=== PATIENT | female | born 1970 | race Caucasian/White ===

== ENCOUNTER 2017-06-27 20:23 | Emergency (ER) | payer OTHER ==
[~2017-06-27] VITALS: Ht 162.6 cm; Wt 111.0 kg
[~2017-06-27 20:23] MED LIST: NORCO 5/3251 TABLET PO; ZOFRAN ODT8 MG PO
[2017-06-27] MEDS ORDERED: ULTRACET1 TABLET PO (21:27)
[2017-06-27] MEDS ORDERED: MOTRIN800 MG PO (21:27)
[2017-06-27 21:39] VITALS: BP 152/85
== END 2017-06-27 21:39 | disposition home or self-care (01) ==
LOC: EME 20:23 → TRA 20:23
DX: S50.02XA Contusion of left elbow, initial encounter (principal); S50.312A Abrasion of left elbow, initial encounter; S66.912A Strain of unspecified muscle, fascia and tendon at wrist and hand level, left hand, initial encounter; S60.222A Contusion of left hand, initial encounter; V23.4XXA Motorcycle driver injured in collision with car, pick-up truck or van in traffic accident, initial encounter
CPT/HCPCS: 73080; 73110; 73130; 99281; 99283